=== PATIENT | male | born 1995 | race African-American/Black ===

== ENCOUNTER 2018-10-08 14:08 | Emergency (ER) | payer MEDICAID ==
[~2018-10-08] VITALS: Ht 175.3 cm; Wt 70.0 kg
[2018-10-08] MEDS ORDERED: TETANUS, DIPHTHERIA, PERTUSSIS VAC/PF 0.5ML (>7YR OLD) IM ONE (14:45)
[2018-10-08] MEDS ORDERED: LIDOCAINE 1%/EPI 1:100,000 10 ML VIAL IJ ONE (14:45)
[2018-10-08] MEDS ORDERED: IBUPROFEN 600MG TABLET PO ONE (14:45)
[2018-10-08] MEDS ORDERED: BACITRACIN ZINC OINT UDPKT TOP ONE (14:45)
[2018-10-08 17:06] VITALS: BP 133/86
== END 2018-10-08 17:10 | disposition home or self-care (01) ==
LOC: EDBD 14:08 → ER 14:08
DX: R07.89 Other chest pain (principal); S81.012A Laceration without foreign body, left knee, initial encounter; M79.644 Pain in right finger(s); M79.89 Other specified soft tissue disorders; S90.415A Abrasion, left lesser toe(s), initial encounter; X58.XXXA Exposure to other specified factors, initial encounter; Y93.02 Activity, running; Y35.93XA Legal intervention, means unspecified, suspect injured, initial encounter; Y92.89 Other specified places as the place of occurrence of the external cause; R03.0 Elevated blood-pressure reading, without diagnosis of hypertension; Z23 Encounter for immunization
CPT/HCPCS: 29125; 73130; 73560; 73630; 90471; 90715; 93005; 99283; A4217; J3490; Z7610